=== PATIENT | female | born 1950 | race Caucasian/White ===

== ENCOUNTER 2020-11-22 13:49 | Outpatient (REF) | payer BC, SELFPAY ==
--- NOTE | ~2020-11-22 | MM_ITS ---
EXAMINATION: MM SCREENING DIGITAL BREAST TOMOSYNTHESIS, BILATERAL CLINICAL INFORMATION: Screening. Asymptomatic. The lifetime risk of breast cancer based on the Tyrer-Cuzick Model is 3.7%. COMPARISON: Mammography: November 17, 2019 and studies dating back to August 31, 2010 TECHNIQUE: Digital breast tomosynthesis is performed in both the craniocaudal and mediolateral oblique views along with computer-aided detection (CAD). Synthesized 2D images are generated from the tomosynthesis. FINDINGS: There are scattered areas of fibroglandular density (ACR BI-RADS breast composition Category b). There are no significant masses, abnormal calcifications, or other abnormalities. MM/MM tomosynthesis screening BI IMPRESSION: There are no significant changes from prior study. ASSESSMENT: BI-RADS 1: Negative RECOMMENDATION: Routine annual mammography screening. This patient's information was entered into a reminder system with a target due date for their next mammogram.
== END 2020-11-22 13:50 | disposition home or self-care (01) ==
LOC: HO.MAMMO 13:49
PROVIDERS: Absent Provider Obstetrics & Gynecology; Visit Provider Internal Medicine
DX: Z12.31 Encounter for screening mammogram for malignant neoplasm of breast (principal)
CPT/HCPCS: 77063; 77067

== ENCOUNTER 2022-04-29 07:33 | Outpatient (REF) | payer BC, SELFPAY ==
--- NOTE | ~2022-04-29 | MM_ITS ---
EXAMINATION: MM SCREENING DIGITAL BREAST TOMOSYNTHESIS, BILATERAL CLINICAL INFORMATION: Screening. Asymptomatic. The lifetime risk of breast cancer based on the Tyrer-Cuzick Model is 4%. COMPARISON: Mammography: 11/22/2020, 11/17/2019, 10/09/2018 TECHNIQUE: Digital breast tomosynthesis is performed in both the craniocaudal and mediolateral oblique views along with computer-aided detection (CAD). Synthesized 2D images are generated from the tomosynthesis. FINDINGS: There are scattered areas of fibroglandular density (ACR BI-RADS breast composition Category b). There are no significant masses, abnormal calcifications, or other abnormalities. Parenchymal pattern is similar to prior studies. There is no developing density or architectural abnormality. The axilla and skin contours are unremarkable. No significant changes. MM/MM tomosynthesis screening BI IMPRESSION: No mammographic evidence of malignancy. ASSESSMENT: BI-RADS 1: Negative RECOMMENDATION: Routine annual mammography screening. This patient's information was entered into a reminder system with a target due date for their next mammogram.
== END 2022-04-29 07:34 | disposition home or self-care (01) ==
LOC: HO.MAMMO 07:33
PROVIDERS: PCP Internal Medicine; Visit Provider Internal Medicine
DX: Z12.31 Encounter for screening mammogram for malignant neoplasm of breast (principal)
CPT/HCPCS: 77063; 77067

== ENCOUNTER 2022-09-25 13:48 | Outpatient (REF) | payer BC, SELFPAY ==
[2022-09-25 14:23] LABS: COVID-19 Test Negative (Negative); IDNOW Serial# 16C4AD1C
== END 2022-09-25 13:49 | disposition home or self-care (01) ==
LOC: HO.LAB 13:48
PROVIDERS: Visit Provider Internal Medicine
DX: Z20.822 Contact with and (suspected) exposure to COVID-19 (principal)
CPT/HCPCS: 87635; C9803

== ENCOUNTER 2023-05-05 07:32 | Outpatient (REF) | payer MEDICARE, SELFPAY ==
--- NOTE | ~2023-05-05 | MM_ITS ---
EXAMINATION: MM SCREENING DIGITAL BREAST TOMOSYNTHESIS, BILATERAL CLINICAL INFORMATION: Screening. Asymptomatic. The lifetime risk of breast cancer based on the Tyrer-Cuzick Model is 3.3%. COMPARISON: Mammography: This study is compared with prior exams dating back to 2018. TECHNIQUE: Digital breast tomosynthesis is performed in both the craniocaudal and mediolateral oblique views along with computer-aided detection (CAD). Synthesized 2D images are generated from the tomosynthesis. FINDINGS: There are scattered areas of fibroglandular density (ACR BI-RADS breast composition Category b). There are no significant masses, abnormal calcifications, or other abnormalities. MM/MM tomosynthesis screening BI IMPRESSION: No mammographic evidence of malignancy. ASSESSMENT: BI-RADS BI-RADS 1 - Negative RECOMMENDATION: Routine annual mammography screening. 1 year F/U This examination should not preclude the clinical evaluation of a suspicious palpable abnormality. This patient's information was entered into a reminder system with a target due date for their next mammogram.
== END 2023-05-05 07:33 | disposition home or self-care (01) ==
LOC: HO.MAMMO 07:32
PROVIDERS: PCP Internal Medicine; Visit Provider Internal Medicine
DX: Z12.31 Encounter for screening mammogram for malignant neoplasm of breast (principal)
CPT/HCPCS: 77063; 77067

== ENCOUNTER → 2023-05-05 07:45 | Outpatient (BNV) | payer MEDICARE, SELFPAY | PROVIDERS: PCP Internal Medicine; Visit Provider Radiology Diagnostic Radiology | DX: Z12.31 Encounter for screening mammogram for malignant neoplasm of breast (principal) | CPT/HCPCS: 77063; 77067 ==

== ENCOUNTER 2024-05-04 11:45 | Day surgery (SDC) | payer MEDICARE, SELFPAY ==
[2024-05-02 11:07] VITALS: BMI 32.3
--- NOTE | 2024-05-03 09:15 | HO.ANESPROP2 ---
Documented by User: Heidy Hsu NP 05/03/24 09:15 HPI - Anesthesia Eval Consult details Narrative: 73yo F for Colonoscopy [facility] Active Problems Active Problems: All Active Problems Cough (Acute) Past Medical History Medical History Anxiety Elevated cholesterol HTN (hypertension) Surgical History Surgical History History of carpal tunnel release History of dilatation and curettage Hx of tonsillectomy H/O colonoscopy Social History Social History Household Members: Spouse Patient Tobacco Use Status: Former Tobacco user Tobacco use type: Cigarette Years Smoked: 2 Meds Allergies Allergy/AdvReac Type Severity Reaction Status Date / Time penicillin V Allergy Mild rash Verified 05/04/24 12:41 cephalexin [From Keflex] Allergy Unknown Unknown Verified 05/04/24 12:41 Home Medications ?Medication ?Instructions ?Recorded ?Confirmed ?Last Taken ?Type aspirin 81 mg tablet,delayed 81 mg PO DAILY 05/02/24 05/04/24 04/27/24 History release atorvastatin 20 mg tablet 20 mg PO DAILY 05/02/24 05/02/24 Unknown History irbesartan 150 mg tablet 150 mg PO DAILY 05/02/24 05/04/24 05/04/24 History lorazepam 0.5 mg tablet 0.5 mg PO DAILY PRN Anxiety 05/02/24 05/02/24 Unknown History Exam Height,Weight and Vital Signs: Height 5 ft 1.5 in Weight 78.925 kg Assessment and Plan Assessment Anesthesia Assessment: Chart Reviewed Documented by User: Neelam Rangel MD 05/04/24 13:29 [facility] Past Medical History Medical History Anxiety Elevated cholesterol HTN (hypertension) Family History Family history of problems with anesthesia: No Surgical History Surgical History History of carpal tunnel release History of dilatation and curettage Hx of tonsillectomy H/O colonoscopy History of Problems with Anesthesia: No Social History Social History Household Members: Spouse Patient Tobacco Use Status: Former Tobacco user Tobacco use type: Cigarette Years Smoked: 2 Meds Allergies Allergy/AdvReac Type Severity Reaction Status Date / Time penicillin V Allergy Mild rash Verified 05/04/24 12:41 cephalexin [From Keflex] Allergy Unknown Unknown Verified 05/04/24 12:41 Home Medications ?Medication ?Instructions ?Recorded ?Confirmed ?Last Taken ?Type aspirin 81 mg tablet,delayed 81 mg PO DAILY 05/02/24 05/04/24 04/27/24 History release atorvastatin 20 mg tablet 20 mg PO DAILY 05/02/24 05/02/24 Unknown History irbesartan 150 mg tablet 150 mg PO DAILY 05/02/24 05/04/24 05/04/24 History lorazepam 0.5 mg tablet 0.5 mg PO DAILY PRN Anxiety 05/02/24 05/02/24 Unknown History Exam Height,Weight and Vital Signs: Height 5 ft 1.5 in Weight 78.925 kg 05/04/24: Height 5 ft 1.5 in Weight 74.843 kg Vital Signs Temp Pulse Resp BP Pulse Ox O2 Del Method 05/04/24 12:48 98.9 F 69 16 121/64 96 Room Air Airway Mallampati Class: II TM Dist: >3cm Neck ROM: Full Loose/Missing/Broken Teeth: No (Dental implants intact. Denies broken, loose, missing teeth) Heart: RRR Lungs: CTAB Assessment and Plan Assessment Anesthesia Assessment: Anesthesia Plan Discussed and Chart Reviewed Final Anesthetic Review Family History of Problems with Anesthesia: No History of Problems with Anesthesia: No NPO: Yes ASA Class: II Final Preanesthetic Review: No Changes in Pt Med Stat, Meds/Allgs Chart Reviewed, Consent Obtained/Reviewed and Anes Risks/Benef Reviewed Patient Risk: Low Procedure Risk: Low Assessment/Block/Sedation in SS: Assess/Block/Sedation-SS Anesthetic Plan Anesthetic Plan: TIVA Disposition: Standard PACU
[2024-05-04 12:48] VITALS: BP 121/64; PULSE 69; RESP 16; TEMP 37.2; O2SAT 96; BMI 30.7
--- NOTE | 2024-05-04 13:21 | MHC.SHP ---
Pre-Procedural Eval Section A - 24 Hr Update-Section A only Date of Service: 05/04/24 Changes since office visit: No Cold of Flu in the past 2 weeks, No New Medical Problems, No Changes in Medication and No Patient answered all questions Section B - Complete if H&P > 30 days Chief Complaint: Encounter for screening for malignant neoplasm of Details of Present Illness: see H&P no changes Relevant Family History (Specify if Yes): No Relevant Social History: None Present Medications: see Short Stay Collaborative assessment Medical History: No relevant PMH History of Previous Operations: No relevant previous surgery Allergies: Allergies Allergy/AdvReac Type Severity Reaction Status Date / Time penicillin V Allergy Mild rash Verified 05/04/24 12:41 cephalexin [From Keflex] Allergy Unknown Unknown Verified 05/04/24 12:41 Review of Systems Sugical H&P ROS: Negative: Constitution, Cardiovascular, Respiratory, Neurological, Psychiatric, Hem-Onc, Allergic/Immunologic, Gastrointestinal, Genitourinary, Musculoskeletal, Integumentary, Endocrine and Eyes/Ears/Nose/Throat Exam Surgical H&P Exam: Normal: HEENT, Normal: Heart, Normal: Lungs, Normal: Extremities, Normal: Abdomen, Normal: Skin and Normal: Neurological Plan Diagnosis/Plan: Unchanged I have reviewed the history and physical and performed a pertinent physical examination on my patient. No changes have occurred unless specified. Time Spent With Patient Time: Total time managing care of this patient today ____ minutes.
[2024-05-04] MEDS: Lactated Ringers 1,000 ML 100 ML IVCONT (13:59)
[2024-05-04 15:00] VITALS: BP 85/44; PULSE 72; RESP 16; TEMP 36.1; O2SAT 98
[2024-05-04 15:15] VITALS: BP 125/70; PULSE 56; RESP 16; O2SAT 98
[2024-05-04 15:29] VITALS: BP 125/64; PULSE 52; RESP 16; TEMP 36.1; O2SAT 96
--- NOTE | 2024-05-04 21:45 | OP_ITS ---
DATE OF SERVICE: 05/04/2024 SURGEON: Luis Dougherty MD INDICATIONS: Colon cancer screening and family history of colon polyps as well as personal history of colon polyps. PREOPERATIVE DIAGNOSIS: POSTOPERATIVE DIAGNOSIS: PROCEDURE PERFORMED: Colonoscopy to the terminal ileum with biopsy. ESTIMATED BLOOD LOSS: COMPLICATIONS: ANESTHESIA: Monitored anesthesia care. ASSISTANTS: SPECIMENS: DESCRIPTION OF PROCEDURE: A history and physical was performed. The risks and benefits of the procedure were explained to the patient. Informed consent was obtained. The patient was placed in the left lateral decubitus position. A digital rectal exam was performed and was found to be normal. The Olympus pediatric video colonoscope was introduced into the rectum and advanced to the cecum. The cecum was identified by transillumination, palpation, and identification of ileocecal valve. Examination was performed. The scope was removed. She tolerated the procedure well and was returned to the recovery area in stable condition. FINDINGS: The terminal ileum was examined and appeared normal. The visualized colonic mucosa was normal. The quality of the prep was good. There was some stool coating the mucosa, mainly in the right colon and proximal transverse colon. This did limit the sensitivity examination for detection of small polyps. A single polyp measuring less than 5 mm was identified in the cecum and removed with the biopsy forceps. No other polyps were seen. There was mild sigmoid diverticulosis. Retroflexed examination showed some internal hemorrhoids. IMPRESSION: Colon polyp. RECOMMENDATION: Follow up the biopsy results. MD STEVEN Cha/CLAYL / [phone]
== END 2024-05-04 15:45 | disposition home or self-care (01) ==
PROVIDERS: PCP Internal Medicine; Visit Provider Internal Medicine Gastroenterology
PROC: 0DJD8ZZ Inspection of Lower Intestinal Tract, Via Natural or Artificial Opening Endoscopic (ICD-10-PCS; CPT 45378; principal; 2024-05-04 13:00)
DX: Z12.11 Encounter for screening for malignant neoplasm of colon (principal); Z86.010 Personal history of colon polyps; Z83.719 Family history of colon polyps, unspecified; D12.0 Benign neoplasm of cecum; K57.30 Diverticulosis of large intestine without perforation or abscess without bleeding; K64.8 Other hemorrhoids; I10 Essential (primary) hypertension; E78.5 Hyperlipidemia, unspecified; F41.9 Anxiety disorder, unspecified; Z79.899 Other long term (current) drug therapy; Z79.82 Long term (current) use of aspirin; Z88.0 Allergy status to penicillin; Z88.1 Allergy status to other antibiotic agents
CPT/HCPCS: 45380; 88305; J2704

== ENCOUNTER 2024-05-09 07:25 | Outpatient (REF) | payer MEDICARE, SELFPAY ==
--- NOTE | ~2024-05-09 | MM_ITS ---
EXAMINATION: MM SCREENING DIGITAL BREAST TOMOSYNTHESIS, BILATERAL CLINICAL INFORMATION: Screening. Asymptomatic. COMPARISON: Mammography: Comparison is made with available prior exams. TECHNIQUE: Digital breast tomosynthesis is performed in both the craniocaudal and mediolateral oblique views along with computer-aided detection (CAD). Synthesized 2D images are generated from the tomosynthesis. FINDINGS: There are scattered areas of fibroglandular density (ACR BI-RADS breast composition Category b). There are no significant masses, abnormal calcifications, or other abnormalities. MM/MM tomosynthesis screening BI IMPRESSION: No mammographic evidence of malignancy. ASSESSMENT: BI-RADS BI-RADS 1 - Negative RECOMMENDATION: Routine annual mammography screening. 1 year F/U This examination should not preclude the clinical evaluation of a suspicious palpable abnormality. This patient's information was entered into a reminder system with a target due date for their next mammogram. Electronically signed by: Aleja Trejo DO 06/02/2024 03:34 PM EDT
== END 2024-05-09 07:26 | disposition home or self-care (01) ==
LOC: HO.MAMMO 07:25
PROVIDERS: Absent Provider Obstetrics & Gynecology; PCP Internal Medicine; Visit Provider Internal Medicine
DX: Z12.31 Encounter for screening mammogram for malignant neoplasm of breast (principal)
CPT/HCPCS: 77063; 77067

== ENCOUNTER → 2024-05-09 07:30 | Outpatient (BNV) | payer MEDICARE, SELFPAY | PROVIDERS: Absent Provider Obstetrics & Gynecology; PCP Internal Medicine; Visit Provider Internal Medicine | DX: Z12.31 Encounter for screening mammogram for malignant neoplasm of breast (principal) | CPT/HCPCS: 77063; 77067 ==

== ENCOUNTER 2025-05-15 07:23 | Outpatient (REF) | payer MEDICARE, SELFPAY ==
--- NOTE | ~2025-05-15 | MM_ITS ---
EXAMINATION: MM SCREENING DIGITAL BREAST TOMOSYNTHESIS, BILATERAL CLINICAL INFORMATION: Screening. Asymptomatic. COMPARISON: Comparison made to multiple prior, most recent May 09, 2024, and most remote November 17, 2019. TECHNIQUE: Digital breast tomosynthesis is performed in both the craniocaudal and mediolateral oblique views along with computer-aided detection (CAD). FINDINGS: BREAST COMPOSITION: There are scattered areas of fibroglandular density (ACR BI-RADS breast composition Category b). BILATERAL BREASTS: No significant masses, suspicious calcifications or other abnormalities are seen in either breast. MM/MM tomosynthesis screening BI IMPRESSION: BILATERAL BREASTS: Negative, no mammographic evidence of malignancy. Normal interval follow-up is recommended in 12 months. ASSESSMENT: BI-RADS 1 - Negative RECOMMENDATION: Routine annual mammography screening. FOLLOW-UP: 1 year F/U This examination should not preclude the clinical evaluation of a suspicious palpable abnormality. This patient's information was entered into a reminder system with a target due date for their next mammogram. Electronically signed by: Neha Rhodes MD 05/16/2025 05:11 PM EDT
--- OUTSIDE RECORDS SUMMARY | 2025-05-15 07:26 | XMS_ITS | Patient Health Record ---
[facility] [place] Address [address] [place] [address] Care Team Providers Care Gis Developer Name Role Phone Stephon PEREZ, Gerson Primary Care Provider Marilynn Thibodeaux Unavailable [phone] Allergies Allergen (clinical drug ingredient) Drug/Non Drug Allergy documented on EMR Reaction Allergy Type Onset Date Status Penicillin Unknown Drug Allergy Active Reason For Referral No Information Medications Medication SIG (Take, Route, Frequency, Duration) Notes Start Date End Date Status Atenolol 25 MG 1 tablet Orally Once a day 04/08/2018 Active Aspirin 81 MG 1 tablet Orally Once a day 04/08/2018 Active iron 1 tab Oral 04/08/2018 Active Vitamin D3 1000 UNIT 1 capsule Orally On ce a day 04/08/2018 Active Triple Dent-3-6-9 - Orally 04/08/2018 Active Multivitamin & Mineral Active Lorazepam as needed Active Social History Tobacco Use: Social History Observation Description Date Details (start date - stop date) Never Smoker NA - NA Tobacco Use/Smoking Question Answer Notes Are you a: nonsmoker Additional Findings: Tobacco Non-User Current no n-smoker Alcohol Screen Question Answer Notes Did you have a drink contain ing alcohol in the past year? Yes How often did you have a dri nk containing alcohol in the past year? Monthly or less (1 point) How many drinks did you have on a typical day when you were drinking in the past year? 1 or 2 drinks (0 point) How often did you have 6 or more drinks on one occasion in the past year? Never (0 point) Points 1 Interpretation Negative Tobacco use other than smoking: Question Answer Notes Are you an other tobacco user? No Problems No Known Problems Plan Of Treatment No Information Insurance Providers Payer Name Payer Address Payer Phone Subscriber Number Group Number Insured Name Patient Relationship to Insured Coverage Start Date Coverage End Date [facility] [employer] [address] [place] [address] [id number] Shruthi Mcclellan Self - patient is the insured 5 Medical (General) History Medical History History ICD Code Glaucoma High blood pressure Measles Mumps Chicken pox
--- OUTSIDE RECORDS SUMMARY | 2025-05-15 07:26 | XMS_ITS | Patient Health Record ---
Author Organization [facility] Address [address] [place] [address] Care Team Providers Care Assembly Worker Name Role Phone Stephon PEREZ, Gerson Primary Care Provider Luis Samuels Jr [phone] Allergies Allergen (clinical drug ingredient) Drug/Non Drug Allergy documented on EMR Reaction Allergy Type Onset Date Status Penicillin Unknown Drug Allergy Active Keflex Unknown Drug Allergy Active Reason For Referral No Information Medications Medication SIG (Take, Route, Frequency, Duration) Notes Start Date End Date Status LORazepam as need/or for flying as needed Active Atorvastatin Calcium 20 MG Oral for 90 Active Irbesartan 150 MG Oral for 90 Active Aspirin 81 MG 1 tablet Orally Once a day Active Immunizations Vaccine Route Administration Date Status Comme nts Influenza Unknown 06/28/2018 Administered Influenza Unknown 07/21/2023 Administered Problems Problem Type SNOMED Code ICD Code Onset Dates Problem Status W/U Status Risk Notes Problem 049165232 Colon cancer screening (Z12.11) Active confirmed Problem 029692689 Encounter for other preprocedural examination (Z01.818) Active confirmed Problem 255243177 Long-term use of aspirin therapy (Z79.82) Active confirmed Encounters Encounter Location Date Provider Diagnosis [facility] [address] [place] [id number] 05/26/2024 Luis Dougherty Jr Plan Of Treatment Future Test Test Name Order Date COLONOSCOPY 03/03/2013 COLONOSCOPY 12/02/2018 COLONOSCOPY 03/07/2024 Insurance Providers Payer Name Payer Address Payer Phone Subscriber Number Group Number Insured Name Patient Relationship to Insured Coverage Start Date Coverage End Date [facility] [address] [place] [address] [phone] [id number] ERIK ESPARZA Self - patient is the insured Medical (General) History Medical History History ICD Code H hypertension Hyperlipidemia Anxiety Colonoscopy 01/14, normal, five-year foll owup for history of polyps. Surgical History Surgery Date(Month/Year) tonsillectomy
== END 2025-05-15 07:24 | disposition home or self-care (01) ==
LOC: HO.MAMMO 07:23
PROVIDERS: Visit Provider Internal Medicine
DX: Z12.31 Encounter for screening mammogram for malignant neoplasm of breast (principal)
CPT/HCPCS: 77063; 77067

== ENCOUNTER → 2025-05-15 07:45 | Outpatient (BNV) | payer MEDICARE, SELFPAY | PROVIDERS: Visit Provider Radiology Body Imaging | DX: Z12.31 Encounter for screening mammogram for malignant neoplasm of breast (principal) | CPT/HCPCS: 77063; 77067 ==